=== PATIENT | female | born 1945 | race Caucasian/White ===

== ENCOUNTER 2017-04-15 09:21 | Day surgery (SDC) | payer MEDICARE, BC ==
[~2017-04-15] VITALS: Ht 154.9 cm; Wt 54.4 kg
[2017-04-15] VITALS (8 sets, daily range): BP systolic 95–124; BP diastolic 51–77
[~2017-04-15 09:21] MED LIST: ASPIR 8181 MG ORAL; BENICAR5 MG ORAL; CALCIUM600 M1 PO; CRESTOR10 M1 ORAL; CYMBALTA60 MG ORAL; FISH OIL CAP1000 MG ORAL; KAZANO 12.5-1,1 EACH ORAL; KLONOPIN1 MG ORAL; LIMBREL 500 MG500 MG ORAL; LMTHF-PYRIDOXI1 EACH PO; LR 1000ml 1,000 ML IVLG SCH; POTASSIUM99 M3 PO; VITAMIN C500 M1 ORAL; VITAMIN D1000 UNI1 ORAL
[2017-04-15] MEDS ORDERED: LR 1000ml ONE (09:22)
[2017-04-15] MEDS ORDERED: Propofol 10mg/ml 20ml IV ONE (09:22)
--- NOTE | 2017-04-15 10:20 | Short Stay Surgery H&P ---
History of Present Illness History of Present Illness Chief Complaint History of recent anemia? GI bleeding HPI Sly Ott is a 71 year old female who was admitted on for Colon Screening/ UGI evaluation for GI bleeding Patient History Allergies: Coded Allergies: NO KNOWN DRUG ALLERGIES (Verified Allergy, Unknown, 05/02/15) PAST MEDICAL HISTORY: (1) Hypertension (2) Hyperlipidemia Past Surgeries: Social History: Medication History Scheduled Alogliptin Yannick/Metformin Hcl (Kazano 12.5-1,000 Mg Tablet), 1 TAB ORAL BID, ( Reported) Ascorbic Acid* (Vitamin C*), 500 MG ORAL DAILY, (Reported) Aspirin* (Aspir 81*), 81 MG ORAL DAILY, (Reported) B12/Levomefolate Calcium/B-6 (Pixkx-Hybbkhjmbk-Tkqzmbsqh Tb), 1 EACH PO DAILY, ( Reported) Baicalin/Catechin (Limbrel 500 Mg Capsule), 600 MG ORAL DAILY, (Reported) Calcium Carbonate (Calcium), 1,000 MG PO DAILY, (Reported) Cholecalciferol (Vitamin D3)* (Vitamin D*), 1,000 UNIT ORAL DAILY, (Reported) Clonazepam* (Klonopin*), 10 MG ORAL BEDTIME, (Reported) Duloxetine Hcl* (Cymbalta*), 60 MG ORAL DAILY, (Reported) Fish Oil (Fish Oil 1,000 mg Capsule), 1,000 MG ORAL DAILY, (Reported) Olmesartan Medoxomil (Benicar), 5 MG ORAL DAILY, (Reported) Potassium Gluconate (Potassium), 99 MG PO DAILY, (Reported) Rosuvastatin Calcium (Crestor), 5 MG ORAL DAILY, (Reported) Review of Systems Cardiovascular: Reports: no symptoms Respiratory: Reports: no symptoms Skeletal: Reports: no symptoms Gastrointestinal: Reports: no symptoms Genitourinary: Reports: no symptoms Neurologic: Reports: no symptoms Endocrine: Reports: no symptoms Hematologic: Reports: no symptoms Physical Exam Skin: normal HENT: normal Heart: normal Lungs: normal Abdomen: normal Extremities: normal Genitourinary: normal Plan Plan of Care Upper and lower GI endoscopies Preop Interventions None. Summary of Findings See the reports. Final Diagnosis: Attestation Are the patient's medical conditions optimized for surgery? Attestation Response: yes KARI ANN Apr 15, 2017 10:20
--- NOTE | 2017-04-15 10:21 | Pre-Procedure Note/Attestation ---
Pre-Procedure Note/Attestation Complete Prior to Procedure Planned Procedure: left Procedure Narrative: Endoscopic examination for the upper and lower GI tract for possible GI bleeding source. Indications for Procedure Pre-Operative Diagnosis: R/O GI bleeding/Anemia Attestation I attest that I discussed the nature of the procedure; its benefits; risks and complications; and alternatives (and the risks and benefits of such alternatives ), prior to the procedure, with the patient (or the patient's legal phone representative). I attest that, if there was a reasonable possibility of needing a blood transfusion, the patient (or the patient's legal phone representative) was given the [place] [employer] [facility] standardized written summary, pursuant to the [place] Blood Safety Act ([place] Health and Safety Code # 1645, as amended). I attest that I re-evaluated the patient just prior to the surgery and that there has been no change in the patient's H&P, except as documented below: KARI ANN Apr 15, 2017 10:21
[2017-04-15] MEDS ORDERED: LR 1000ml 1,000 ML IVLG SCH (10:48)
--- NOTE | 2017-04-15 10:52 | Anethesia Preoperative Eval ---
Anesthesia Pre-op PMH/ROS General Date of Evaluation: Apr 15, 2017 Time of Evaluation: 10:30 Anesthesiologist: shira ASA Score: ASA 3 Mallampati Score Class I : Soft palate, uvula, fauces, pillars visible Class II: Soft palate, uvula, fauces visible Class III: Soft palate, base of uvula visible Class IV: Only hard plate visible Mallampati Classification: Class II Surgeon: Raisa Diagnosis: GI bleed, anemia Surgical Procedure: GD, Colonoscopy Family History: no anesthesia problems Allergies: Coded Allergies: NO KNOWN DRUG ALLERGIES (Verified Allergy, Unknown, 05/02/15) Past Medical History Cardiovascular: Reports: HTN, Denies: CAD, [place], arrhythmia, other, valve dz Pulmonary: Denies: COPD, SHAREE, asthma, other Gastrointestinal/Genitourinary: Reports: GERD, Denies: CRI, ESRD, other Neurologic/Psychiatric: Denies: CVA, TIA, dementia, depression/anxiety, other Endocrine: Reports: DM, Denies: hypothyroidism, other, steroids HEENT: Denies: [place] (L), [place] (R), cataract (L), cataract (R), glaucoma, other Hematology/Immune: Reports: anemia, Denies: DVT, bleeding disorder, other Musculoskeletal/Integumentary: Reports: OA PMH Narrative: DM, HTN, GERD, anemia PSxH Narrative: Bilateral TKR, right THR Anesthesia Pre-op Phys. Exam Physician Exam Constitutional: NAD Neurologic: CN 2-12 intact Cardiovascular: RRR, no M/R/G Respiratory: CTA Gastrointestinal: S/NT/ND Airway Exam Mallampati Score: Class II MO: full ROM: full Teeth: intact Anesthesia Pre-op A/P Risk Assessment & Plan Assessment: Anemi Plan: G, TIVA Status Change Before Surgery: No Pre-Antibiotics Drug: None SHASHI BOWEN M.D. Apr 15, 2017 10:52
--- NOTE | 2017-04-15 10:57 | Immediate Post-Op Evaluation ---
Immediate Post-Op Evalulation Immediate Post-Op Evalulation Procedure: EGD, colonoscopy Date of Evaluation: Apr 15, 2017 Time of Evaluation: 11:37 IV Fluids: 400 Blood Pressure Systolic: 95 Blood Pressure Diastolic: 51 Pulse Rate: 88 Respiratory Rate: 16 O2 Sat by Pulse Oximetry: 99 Temperature (Fahrenheit): 98.1 Pain Score (1-10): 0 Nausea: No Vomiting: No Complications No complication Patient Status: awake, patent, none Hydration Status: adequate Drug: None SHASHI BOWEN M.D. Apr 15, 2017 10:57
[2017-04-15] MEDS ORDERED: fentaNYL 100 mcg/2 mL IV PRN (11:00)
[2017-04-15] MEDS ORDERED: LR 1000ml 1,000 ML IV SCH (11:00)
--- NOTE | 2017-04-15 11:24 | Endoscopy Procedure Note ---
Endoscopy Procedure Note Indication for Procedure: Anemia with possible GI source bleeding Procedures Performed: EGD - minimal gastritis of prepyloric area/antrum biopsied with moderate amount of bile in stomach c/w duodeno gastric bile reflux; otherwise complelety normal upper GI endoscopic exam. No evidence of any GI bleeding source noted in the upper GI tract., colonoscopy - Small hemorrhoidal external tag with highly redundant left colon otherwise normal total colonoscopy upto the base of the cecum with no evidence of colonic GI bleeding source noted. Specimen: yes Pt Tolerated Procedure Well: Yes Estimated Blood Loss: none Anesthesiologist: Dr. Jones Anesthesia: moderate sedation Medication Given: see anesthesia record 50 yrs or older w/o bx or poly: Yes 10yrs. F/U not recommended: Yes Med reason:<3 yrs.: System Reason:<3 yrs.: KARI ANN Apr 15, 2017 11:24
--- NOTE | 2017-04-15 11:26 | Discharge Instructions ---
Discharge Instructions Discharge Instructions Follow up with: Visit doctor Seth after 2 weeks in the office For Congestive Heart Failure Reminder Report to your physician any weight gain of 5 pounds or more in one week. SETH,KARI Apr 15, 2017 11:26
--- NOTE | 2017-04-15 11:31 | 48 Hour Post Anesthesia Eval ---
Post Anesthesia Evaluation Procedure: EGD, colonoscopy Date of Evaluation: Apr 15, 2017 Time of Evaluation: 12:00 Blood Pressure Systolic: 104 0: 55 Pulse Rate: 89 Respiratory Rate: 18 O2 Sat by Pulse Oximetry: 98 Airway: patent Nausea: No Vomiting: No Pain Intensity: 0 Hydration Status: adequate Cardiopulmonary Status: Stable Mental Status/LOC: patient returned to baseline Follow-up Care/Observations: As per surgery Post-Anesthesia Complications: No anesthetic complication Follow-up care needed: N/A SHASHI BOWEN M.D. Apr 15, 2017 11:31
--- NOTE | 2017-04-15 17:45 | Operative Note - Dictated ---
FACILITY: SURGEON: Salome Kline M.D. SUPERVISOR SEWING DEPARTMENT: ANESTHESIOLOGIST: PREOPERATIVE DIAGNOSIS: Recent anemia, rule out upper gastrointestinal bleeding. POSTOPERATIVE DIAGNOSES: Very minimal inflammatory process in prepyloric area consistent with mild antritis. Biopsy otherwise complete normal upper gastrointestinal endoscopy without any evidence of GI bleeding source at this time. MEDICATION USED: Dr. Cehn, anesthesiologist. INSTRUMENT: GIF Olympus upper gastrointestinal video endoscope. DESCRIPTION OF PROCEDURE: The patient after arriving endoscopy unit was told about risks and benefits of the procedure, which she accepted and signed the informed consent. She was then put on the left lateral decubitus position. After adequate IV sedation, scope was gently passed through the cricopharyngeal area, was lodged in the upper esophagus, and gradually advanced towards gastroesophageal junction. The entire length of the esophagus looked normal and there was no any evidence of bleeding source, ulcers, tumors, polyps, stricture, or varices, etc. noted. GE junction also was reached, which revealed normal findings without any evidence of hiatal hernia or Thao's. The scope at this time was guided into the stomach. Gastric cavity was distended and examination revealed evidence of moderate amount of bile in the stomach consistent with duodenogastric bile reflux, which was suctioned; however, underlying mucosa revealed complete normal finding without any evidence of ulcers, tumors, angiodysplasia, or polyps, etc. No gastritis in the body of the stomach. However, upon arriving at the antral area, there was evidence of minimal inflammatory process in the prepyloric section, which was nonsignificant, however, it was biopsied. There were no ulcers or erosion. Subsequently, scope was passed through the pylorus. First and second portion of duodenum were examined, which also were found to be completely normal. At this time, the scope was pulled back into the stomach. A retroflexion maneuver was applied. The area of the gastroesophageal junction was examined in a closer fashion, which revealed normal findings. Finally, procedure was terminated and the patient tolerated the procedure well. Salome Kline M.D. DR: VANDA JOB#: [id number] CC: Terrell Perez M.D.; Fax#: [phone]
--- NOTE | 2017-04-15 18:45 | Operative Note - Dictated ---
DATE OF OPERATION: 04/15/2017 FACILITY: SURGEON: Salome Kline M.D. GUN EXAMINER: ANESTHESIOLOGIST: PREOPERATIVE DIAGNOSIS: Anemia, possible gastrointestinal bleeding source. POSTOPERATIVE DIAGNOSES: Completely normal colonoscopy with high redundancy of the colon and minimal hemorrhoidal external tags. No gastrointestinal bleeding source found in the colon. MEDICATIONS USED: Dr. Chen, anesthesiologist. INSTRUMENT: GIF Olympus videocolonoscope. DESCRIPTION OF PROCEDURE: The patient after arriving to endoscopy unit was told about risks and benefits of the procedure, which she accepted and signed the informed consent. At this time, she was put on the left lateral decubitus position. After adequate IV sedation, scope gently passed through the anal area, which revealed evidence of hemorrhoidal tags. No great significance. The retroflexion maneuver was applied in the rectal area which revealed no particular hemorrhoidal lesions or friability bleeding etc. The rectum was also within normal limits by itself without any evidence of inflammatory process, colitis, ulcers, or angiodysplasia, etc. At this time, the scope was passed through highly redundant left colon, and gradually reaching towards the splenic flexure. From there, it was guided into the transverse colon, hepatic flexure, and the right colon all the way to the base of the cecum. All these areas were very particularly examined for possibility of underlying bleeding source, which was negative and there was no angiodysplasia, tumor polyps, or ulcers, etc. Finally upon reaching to the base of the cecum and visualizing, the appendiceal opening the scope was gradually within 7 minutes pulled out. The patient tolerated the procedure well. The colon cleanup was adequate. Salome Kline M.D. DR: VANDA JOB#: [id number] CC: Terrell Perez M.D.; Fax#: [phone]
== END 2017-04-15 12:40 | disposition home or self-care (01) ==
LOC: GAS 09:21
DX: Z12.11 Encounter for screening for malignant neoplasm of colon (principal); Q43.8 Other specified congenital malformations of intestine; K64.4 Residual hemorrhoidal skin tags; D64.9 Anemia, unspecified; K31.9 Disease of stomach and duodenum, unspecified; K29.60 Other gastritis without bleeding; I10 Essential (primary) hypertension; E78.5 Hyperlipidemia, unspecified; K21.9 Gastro-esophageal reflux disease without esophagitis; E11.9 Type 2 diabetes mellitus without complications; M19.90 Unspecified osteoarthritis, unspecified site; Z79.82 Long term (current) use of aspirin; Z96.653 Presence of artificial knee joint, bilateral; Z96.641 Presence of right artificial hip joint
CPT/HCPCS: 43239; 82962; G0121; J2704; J7120; 94003; 94150

== ENCOUNTER 2017-04-19 10:37 | Outpatient (CLI) | payer MEDICARE, BC ==
[~2017-04-19 10:37] MED LIST changes: -LR 1000ml 1,000 ML IVLG SCH
--- NOTE | 2017-04-20 15:48 | GI Initial Consult Note ---
History of Present Illness General Date patient seen: Apr 19, 2017 Time patient seen: 11:00 Referring physician: SETH Reason for Consultation: SBCE Present Illness HPI 71 year old patient referred by Dr. Ann s/p EGD/colonoscopy with unremarkable results here today for small bowel capsule endoscopy. The patient presents today with no generalized GI symptoms. Denies any weight loss. Endoscopy Procedure Note Indication for Procedure: Anemia with possible GI source bleeding Procedures Performed: EGD - minimal gastritis of prepyloric area/antrum biopsied with moderate amount of bile in stomach c/w duodenal gastric bile reflux; otherwise completely normal upper GI endoscopic exam. No evidence of any GI bleeding source noted in the upper GI tract., colonoscopy - Small hemorrhoidal external tag with highly redundant left colon otherwise normal total colonoscopy upto the base of the cecum with no evidence of colonic GI bleeding source noted. KARI ANN - Apr 15, 2017 11:24 Home Meds Reported Medications Potassium Gluconate (POTASSIUM) 99 Mg Tablet, 99 MG PO DAILY, TAB 05/02/15 Baicalin/Catechin (LIMBREL 500 MG CAPSULE) 500 Mg Capsule, 600 MG ORAL DAILY, # 60 CAP 0 Refills 05/02/15 Ascorbic Acid* (VITAMIN C*) 500 Mg Tablet, 500 MG ORAL DAILY, #30 TAB 0 Refills 05/02/15 Fish Oil (Fish Oil 1,000 mg Capsule) 1,000 Mg Cap, 1000 MG ORAL DAILY, CAP 05/02/15 B12/Levomefolate Calcium/B-6 (JEFPG-OCJRVPSOPL-GSSWITBGI TB) 1 Each Tablet, 1 EACH PO DAILY, TAB 05/02/15 Cholecalciferol (Vitamin D3)* (VITAMIN D*) 1,000 Unit Tablet, 1000 UNIT ORAL DAILY, #30 TAB 05/02/15 Calcium Carbonate (CALCIUM) 600 Mg Tablet, 1000 MG PO DAILY, TAB 05/02/15 Aspirin* (ASPIR 81*) 81 Mg Tablet.dr, 81 MG ORAL DAILY, TAB 05/02/15 Olmesartan Medoxomil (BENICAR) 5 Mg Tablet, 5 MG ORAL DAILY, TAB 05/02/15 Duloxetine Hcl* (CYMBALTA*) 60 Mg Capsule.dr, 60 MG ORAL DAILY, CAP 05/02/15 Alogliptin Yannick/Metformin Hcl (KAZANO 12.5-1,000 MG TABLET) 1 Each Tablet, 1 TAB ORAL BID, TAB 0 Refills 05/02/15 Clonazepam* (KLONOPIN*) 1 Mg Tablet, 10 MG ORAL BEDTIME, #15 TAB 0 Refills 05/02/15 Rosuvastatin Calcium (Crestor) 10 Mg Tab, 5 MG ORAL DAILY, TAB 05/02/15 Med list reviewed/reconciled: Yes Allergies: Coded Allergies: NO KNOWN DRUG ALLERGIES (Verified Allergy, Unknown, 05/02/15) Patient History History Provided By: Patient, Medical Record PMH Narrative anemia DM II elevated cholesterol Vitamin D deficiency PSHx [id number] >> Bilateral knee, hip replacement x 2 Social History: Reports: smoking - quit x 7 years Review of Systems All Other Systems: negative except mentioned in HPI Physical Exam T 97.8 BP 115/53 p 90 96 RA WT 124.6 lbs General Appearance: well appearing, no apparent distress, alert Head: normocephalic EENT: normal ENT inspection Neck: normal inspection, full range of motion, supple Respiratory: chest non-tender, normal breath sounds, no respiratory distress Cardiovascular: normal rate Gastrointestinal: normal inspection, non tender, soft, normal bowel sounds Rectal: deferred Genitourinary: no CVA tenderness Musculoskeletal: back normal Neurologic: normal inspection, alert, oriented x3, responsive Psychiatric: normal inspection, judgement/insight normal, memory normal Skin: normal inspection, normal color, no rash, warm/dry, well hydrated, normal turgor Lymphatic: normal inspection, no adenopathy GI: Plan Problems: (1) Encounter for diagnostic endoscopy (2) Anemia (3) Hypertension (4) Hyperlipidemia (5) Diabetes Plan SBCE scheduled for 05-03-17. - CLD + [employer] prep instructions given and acknowledged. Seen with Dr. Perez. Thank you for referring this kind patient. Susan Boo N.P. Apr 20, 2017 15:48
== END 2017-04-19 11:00 | disposition home or self-care (01) ==
LOC: PAN 10:37
DX: D64.9 Anemia, unspecified (principal); I10 Essential (primary) hypertension; E78.5 Hyperlipidemia, unspecified; E11.9 Type 2 diabetes mellitus without complications; Z79.82 Long term (current) use of aspirin
CPT/HCPCS: 99201

== ENCOUNTER 2017-05-03 08:48 | Outpatient (CLI) | payer MEDICARE, BC ==
--- NOTE | 2017-05-03 17:17 | GI Progress Note ---
Assessment/Plan Problems: (1) Encounter for diagnostic endoscopy ICD Codes: Z01.818 - Encounter for other preprocedural examination SNOMED: [id number], [id number] (2) Anemia ICD Codes: D64.9 - Anemia, unspecified SNOMED: 533151772 Status: stable Status Narrative Seen with Dr. Perez. Assessment/Plan SBCE today. - patient instructions given and acknowledged. RTC tomorrow for equipment return. The patient was seen and examined at bedside and all new and available data was reviewed in the patients chart. I agree with the above findings, impression and plan. (Patient seen earlier today. Signature stamp does not reflect patient encounter time.). -Terrell Perez MD Subjective Gastrointestinal/Abdominal: Reports: no symptoms Objective T 97.7 BP 120/57 P 96 97 RA Laboratory Tests Test 05/03/17 09:00 Stool Occult Blood Negative (NEGATIVE) General Appearance: no apparent distress, alert Cardiovascular: normal rate Respiratory/Chest: chest wall non-tender, lungs clear, normal breath sounds, no respiratory distress Abdominal Exam: normal bowel sounds, non tender, soft, no organomegaly, no mass Extremities: normal range of motion, non-tender Susan Boo N.P. May 03, 2017 17:17 TERRELL PEREZ May 04, 2017 11:15
== END 2017-05-03 09:40 | disposition home or self-care (01) ==
LOC: PAN 08:48
DX: Z01.818 Encounter for other preprocedural examination (principal); D64.9 Anemia, unspecified
CPT/HCPCS: 82270